=== PATIENT | male | born 1970 | race Caucasian/White ===

== ENCOUNTER 2025-01-13 15:59 | Emergency (ER) | payer BC ==
[~2025-01-13] VITALS: Ht 193 cm; Wt 100.0 kg
[~2025-01-13 15:59] MED LIST: NO HOME MEDS
[2025-01-13 16:28] VITALS: TEMP 98
[2025-01-13] MEDS: morphine 4 MG/ML inj SYRINge IV ONE ×2 (16:29→16:54)
[2025-01-13] MEDS: ondansetron/PF 4mg/2ml inj IV ONE (16:29)
--- NOTE | 2025-01-13 16:53 | RADIOLOGY REPORT ---
Indication: ANKLE PAIN Technique: DI ANKLE, COMPLETE(3VW MIN)ANKLECPLT Comparison: None FINDINGS/IMPRESSION: Age indeterminate fracture of the 4th metatarsal head/neck. Correlate with point tenderness. Diffuse left ankle soft tissue edema.
[2025-01-13] MEDS: bacitracin 15gm ointment TP ONE (17:05)
[2025-01-13] MEDS: LIDOcaine 1% W/epiNEPHrine 1:100,000 20ml vial IJ ONE (17:05)
[2025-01-13] MEDS ORDERED: IBUP-864 PO (17:05)
[2025-01-13] MEDS ORDERED: HYDR-3973 PO (17:05)
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
[2025-01-13] MEDS: HYDROcodone/acetaminophen 10/325mg tab PO ONE (18:10)
[2025-01-13 18:15] VITALS: BP 110/63; PULSE 80; O2SAT 97
[2025-01-13 18:20] VITALS: RESP 15
== END 2025-01-13 18:19 | disposition home or self-care (01) ==
LOC: ER 16:00
DX: S92.342A Displaced fracture of fourth metatarsal bone, left foot, initial encounter for closed fracture (principal); S91.012A Laceration without foreign body, left ankle, initial encounter; V89.2XXA Person injured in unspecified motor-vehicle accident, traffic, initial encounter; Y93.89 Activity, other specified; Y92.89 Other specified places as the place of occurrence of the external cause; Y99.8 Other external cause status
CPT/HCPCS: 12002; 73610; 96374; 96375; 99284; J2270; J2405; L4360; A6258; A6449